=== PATIENT | male | born 2000 | race Two or more races ===

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

== ENCOUNTER 2022-04-08 08:39 | Emergency (ER) | payer OTHER ==
[2022-04-08 08:44] VITALS: RESP 18; BMI 26.6
[2022-04-08] MEDS ORDERED: METOCLOPRAMIDE HCL INJECTION 10 MG/2 ML VIAL IVPUSH ONE (09:26)
[2022-04-08] MEDS ORDERED: LACTATED RINGERS SOLUTION 1000 ML INFUS.BAG IV ONE (09:26)
[2022-04-08] MEDS ORDERED: METOCLOPRAMIDE HCL INJECTION 10 MG/2 ML VIAL ONE (10:08)
[2022-04-08 11:02] LABS: BASO % 0.7 % (0-2.0); EOS % 1.1 % (0-4.5); HEMATOCRIT 44.1 % (35.4-49); HEMOGLOBIN 14.7 GM/dL (11.7-16.9); LYMPH % 24.2 % (8-40); MCH 27.6 pg (25.7-33.7); MCHC 33.4 g/dl (32.0-35.9); MEAN CELL VOLUME 82.8 fl (80-96); MEAN PLT VOLUME 7.5 fl (7.5-11.1); MONO % 11.5 % (3.8-10.2); NEUT % 62.5 % (42.8-82.8); PLATELET COUNT 314 10^3/uL (134-434); RBC 5.32 M/mm3 (4.00-5.60); RDW 12.8 % (11.9-15.9); WHITE BLOOD COUNT 5.2 K/mm3 (4.0-10.0)
[2022-04-08 11:25] LABS: CALCIUM 9.8 mg/dL (8.5-10.1)
[2022-04-08 11:26] LABS: ALBUMIN 4.3 g/dl (3.4-5.0); BLOOD UREA NITROGEN 8.9 mg/dL (7-18)
[2022-04-08 11:30] LABS: BILIRUBIN,TOTAL 0.4 mg/dL (0.2-1); TOT PROT 7.5 g/dl (6.4-8.2)
[2022-04-08 13:06] VITALS: BP 145/74; PULSE 92; TEMP 99.1
== END 2022-04-08 13:08 | disposition home or self-care (01) ==
LOC: JER 08:39
PROC: 3E033GC Introduction of Other Therapeutic Substance into Peripheral Vein, Percutaneous Approach (ICD-10-PCS; principal; 2022-04-08)
DX: R55 Syncope and collapse (principal)
CPT/HCPCS: 0241U-QW; 36415; 70450-TC; 71046-TC-FY; 80053; 84484; 85025; 93005; 93010; 99285-25

== ENCOUNTER 2022-04-22 20:44 | Emergency (ER) | payer BC, OTHER ==
[2022-04-22 20:50] VITALS: BP 132/75; PULSE 66; RESP 19; TEMP 98.7; BMI 25.8
[2022-04-22] MEDS ORDERED: IBUPROFEN 600 MG TABLET (FP) PO ONE ×2 (22:29→22:31)
== END 2022-04-22 22:44 | disposition home or self-care (01) ==
LOC: JERFT 20:44 → JER 20:44 → JERFT 22:44
DX: R42 Dizziness and giddiness (principal)
CPT/HCPCS: 99283-25